=== PATIENT | male | born 1945 | race Caucasian/White ===

== ENCOUNTER 2018-02-13 15:49 | Outpatient (REF) | payer MEDICARE, BC, SELFPAY ==
[2018-02-13 20:44] LABS: Abs Immature Grans 0.01 k/cumm (0.0-0.09); Absolute Basophil Count 0.04 k/cumm (0.0-0.2); Absolute Eosinophil Count 0.21 k/cumm (0.0-0.7); Absolute Lymphocyte Count 1.66 k/cumm (1.2-3.4); Absolute Monocyte Count 0.98 k/cumm (0.11-0.7); Absolute Neutrophil Count 4.65 k/cumm (1.2-6.7); Basophils % 0.5; Eosinophils % 2.8; Immature Grans % 0.1; Mean Corp. HGB Concentration 33.3 g/dL (32.0-36.0); Mean Corpuscular Hemoglobin 28.5 pg (27.0-33.0); Mean Corpuscular Volume 85.6 fL (80-95); Mean Platelet Volume 11.7 fL (8.0-11.0); Neutrophils % 61.6; Platelet Count 203 x1000/uL (130-400); RBC 5.61 m/cumm (4.50-6.00); RBC Distribution Width 13.8 % (11.8-14.1); White Blood Cell Count 7.55 k/cumm (4.4-10.8)
[2018-02-13 21:02] LABS: ALT 40 U/L (12-78); AST 35 U/L (15-37); Albumin 4.1 g/dL (3.4-5.0); Alkaline Phosphatase 74 U/L (46-116); Anion Gap 9.8 mmol/L (3-11); BUN 23 mg/dL (7-18); Bilirubin, Total 2.6 mg/dL (0.2-1.0); C-Reactive Protein 0.08 mg/dL (0.0-0.3); CO2 27.2 mmol/L (21.0-32.0); CREATININE 1.38 mg/dL (0.70-1.30); Chloride 104 mmol/L (98-107); Creatine Kinase 370 U/L (39-308); Estimated GFR 50.79 (mL/min/1.73m2); Glucose 121 mg/dL (70-100); Potassium 4.6 mmol/L (3.5-5.1); Sodium 141 mmol/L (136-145); Total Protein 7.4 g/dL (6.4-8.2)
[2018-02-13 22:18] LABS: ESR 7 MM/HR (1-20)
== END 2018-02-13 16:09 ==
LOC: NCHCN 15:49
PROVIDERS: PCP Nurse Practitioner Family; Visit Provider Nurse Practitioner Family
DX: M79.18 Myalgia, other site (principal); R52 Pain, unspecified
CPT/HCPCS: 80053; 82550; 85652; 85025; 86140

== ENCOUNTER 2018-02-25 13:55 | Outpatient (REF) | payer MEDICARE, BC, SELFPAY ==
[2018-02-25 22:15] LABS: ALT 38 U/L (12-78); AST 29 U/L (15-37); Albumin 3.8 g/dL (3.4-5.0); Alkaline Phosphatase 76 U/L (46-116); Anion Gap 9.3 mmol/L (3-11); BUN 20 mg/dL (7-18); Bilirubin, Total 1.9 mg/dL (0.2-1.0); CO2 28.7 mmol/L (21.0-32.0); Calcium 8.8 mg/dL (8.5-10.1); Chloride 102 mmol/L (98-107); Creatine Kinase 225 U/L (39-308); Estimated GFR 59.68 (mL/min/1.73m2); Glucose 112 mg/dL (70-100); Potassium 4.5 mmol/L (3.5-5.1); Sodium 140 mmol/L (136-145); TSH (W/Ref FT4) 0.86 uIU/mL (0.358-3.74); Total Protein 7.1 g/dL (6.4-8.2)
[2018-02-26 05:14] LABS: Vitamin D 25 Total 30.1 ng/ml (30-100)
== END 2018-02-25 14:15 ==
LOC: NCHCN 13:55
PROVIDERS: PCP Nurse Practitioner Family; Visit Provider Nurse Practitioner Family
DX: G72.0 Drug-induced myopathy (principal); R94.4 Abnormal results of kidney function studies; E55.9 Vitamin D deficiency, unspecified
CPT/HCPCS: 80053; 82306; 82550; 84443

== ENCOUNTER 2020-02-09 14:46 | Outpatient (REF) | payer MEDICARE, BC, SELFPAY ==
[2020-02-12 21:57] LABS: SARS-CoV-2 RNA Undetected (Undetected); SARS-CoV-2 Specimen Source Nasal
== END 2020-02-09 15:06 ==
LOC: NCHCN 14:46
PROVIDERS: PCP Nurse Practitioner Family; Visit Provider Nurse Practitioner Family
DX: Z20.828 Contact with and (suspected) exposure to other viral communicable diseases (principal)
CPT/HCPCS: U0003

== ENCOUNTER 2020-11-07 17:33 | Outpatient (REF) | payer MEDICARE, BC, SELFPAY ==
[2020-11-07 21:23] LABS: ESR 13 mm/hr (0-20)
[2020-11-07 21:24] LABS: Abs Immature Grans 0.03 10^3/uL (0.0-0.06); Absolute Basophil Count 0.05 10^3/uL (0.0-0.2); Absolute Eosinophil Count 0.18 10^3/uL (0.0-0.7); Absolute Lymphocyte Count 1.53 10^3/uL (1.2-3.4); Absolute Monocyte Count 1.04 10^3/uL (0.1-0.8); Basophils % 0.6; Eosinophils % 2.2; HCT 48.3 % (40.0-50.0); HGB 15.8 g/dL (13.5-17.5); Immature Grans % 0.4; Lymphocytes % 19.1; MCH 28.6 pg (27.0-33.0); MCHC 32.7 % (32.0-36.0); MCV 87.5 fL (80-95); MPV 11.2 fL (8.0-11.0); Neutrophils % 64.7; Nucleated RBC 0 %; Platelet Count 179 10^3/uL (130-400); RBC 5.52 10^6/uL (4.36-5.78); RDW 13.1 % (11.8-14.1); RDW-SD 42.5 fL; WBC 8.03 10^3/uL (4.4-10.8)
[2020-11-07 21:37] LABS: ALT 33 U/L (16-63); AST 31 U/L (15-37); Albumin 4.2 g/dL (3.4-5.0); Alkaline Phosphatase 65 U/L (46-116); Anion Gap 8.6 mmol/L (3-11); BUN 18 mg/dL (7-18); Bilirubin, Total 2.2 mg/dL (0.2-1.0); C-Reactive Protein 0.16 mg/dL (0.0-0.3); CO2 28.4 mmol/L (21.0-32.0); CREATININE 1.3 mg/dL (0.70-1.30); Calcium 9.1 mg/dL (8.5-10.1); Chloride 105 mmol/L (98-107); Creatine Kinase 268 U/L (39-308); Estimated GFR 53.96 (mL/min/1.73m2); Glucose 101 mg/dL (74-106); Potassium 5.1 mmol/L (3.5-5.1); Sodium 142 mmol/L (136-145); Total Protein 7.5 g/dL (6.4-8.2)
[2020-11-08 15:57] LABS: Rheumatoid Factor <8.6 IU/mL (<12.0)
[2020-11-09 10:08] LABS: Cyclic Citrullinated Peptide <2.5 U/mL (<5.0)
[2020-11-10 14:00] LABS: ANA Interpretation Positive (Negative); ANA Titer Pattern 1:80 Homogeneous; ANA Titer Pattern 2 1:160 Nucleolar
== END 2020-11-07 17:34 | disposition home or self-care (01) ==
LOC: NCHCN 17:33
PROVIDERS: PCP Nurse Practitioner Family; Visit Provider Nurse Practitioner Family
DX: M25.50 Pain in unspecified joint (principal)
CPT/HCPCS: 80053; 82550; 85652; 86200; 85025; 86038; 86140; 86431

== ENCOUNTER 2021-04-30 16:24 | Outpatient (REF) | payer MEDICARE, BC, SELFPAY ==
[2021-04-30 21:24] LABS: ALT 31 U/L (16-63); AST 30 U/L (15-37); Alkaline Phosphatase 61 U/L (46-116); Anion Gap 7.8 mmol/L (3-11); BUN 16 mg/dL (7-18); CO2 29.2 mmol/L (21.0-32.0); CREATININE 1.2 mg/dL (0.70-1.30); Calcium 8.8 mg/dL (8.5-10.1); Chloride 105 mmol/L (98-107); Estimated GFR 59.02 (mL/min/1.73m2); Glucose 115 mg/dL (74-106); Potassium 4.8 mmol/L (3.5-5.1); Sodium 142 mmol/L (136-145); Total Protein 7.1 g/dL (6.4-8.2)
== END 2021-04-30 16:25 | disposition home or self-care (01) ==
LOC: NCHCN 16:24
PROVIDERS: PCP Nurse Practitioner Family; Visit Provider Nurse Practitioner Family
DX: R17 Unspecified jaundice (principal)
CPT/HCPCS: 80053